=== PATIENT | male | born 1945 | race Caucasian/White ===

== ENCOUNTER → 2016-07-07 | Outpatient (CLI) | payer MEDICARE ==
[~2016-07-07] MED LIST: AMLO2.5T PO; CETI10CA PO; DOXA2TAB9 PO; DOXY50SY PO; FLUT1DIS IH; GENT80PI6 IV; VALS1TAB26 PO
[2016-07-07 12:03] LABS: ASPARTATE AMINO TRANSFERASE 16 U/L (15-37); BLOOD UREA NITROGEN 20 mg/dL (7-18); C-REACTIVE PROTEIN, QUANT 0.34 mg/dL (0.02-0.49)
[2016-07-07 12:04] LABS: PROSTATE SPECIFIC ANTIGEN 3.06 ng/mL (0.00-4.00)
== END | disposition home or self-care (01) ==
LOC: CFH 09:01
PROVIDERS: ATTEND Internal Medicine Infectious Disease
DX: N41.0 Acute prostatitis (principal); D83.8 Other common variable immunodeficiencies; R70.0 Elevated erythrocyte sedimentation rate; Z79.2 Long term (current) use of antibiotics
CPT/HCPCS: 36415; 80053; 80061; 81003; 82306; 84153; 85025; 86140

== ENCOUNTER → 2016-07-14 | Outpatient (CLI) | payer MEDICARE ==
[2016-07-16 07:07] LABS: DIPHTHERIA ANTITOXOID AB 1.87 IU/mL (<0.10); TETANUS ANTITOXOID IGG 3.16 IU/mL (<0.10)
[2016-07-17 09:08] LABS: STREP PNEUMO TYPE 1 0.8 ug/mL (>1.3); STREP PNEUMO TYPE 12 0.3 ug/mL (>1.3); STREP PNEUMO TYPE 14 3.3 ug/mL (>1.3); STREP PNEUMO TYPE 19 6.1 ug/mL (>1.3); STREP PNEUMO TYPE 23 2.1 ug/mL (>1.3); STREP PNEUMO TYPE 26 1.5 ug/mL (>1.3); STREP PNEUMO TYPE 3 5.6 ug/mL (>1.3); STREP PNEUMO TYPE 4 4.6 ug/mL (>1.3); STREP PNEUMO TYPE 51 3.1 ug/mL (>1.3); STREP PNEUMO TYPE 56 2.4 ug/mL (>1.3); STREP PNEUMO TYPE 57 >23.2 ug/mL (>1.3); STREP PNEUMO TYPE 68 4.2 ug/mL (>1.3); STREP PNEUMO TYPE 8 4.7 ug/mL (>1.3); STREP PNEUMO TYPE 9 2.1 ug/mL (>1.3)
[2016-07-17 11:06] LABS: N.MENINGITIDIS TYPE A IGG 42.6 ug/mL (.); N.MENINGITIDIS TYPE C IGG 0.8 ug/mL (.); N.MENINIGITIDIS TYPE W-135 IGG 2.6 ug/mL (.)
== END | disposition home or self-care (01) ==
LOC: LAB 11:45
PROVIDERS: ATTEND Internal Medicine Infectious Disease
DX: N41.0 Acute prostatitis (principal); R70.0 Elevated erythrocyte sedimentation rate; D83.8 Other common variable immunodeficiencies
CPT/HCPCS: 36415; 86317; 86609; 86684; 86741